=== PATIENT | male | born 1975 | race American Indian/Alaskan Native ===

== ENCOUNTER 2018-08-14 01:34 | Emergency (ER) | payer SELFPAY ==
[2018-08-14] MEDS ORDERED: ASPIRIN PO ONE (03:06)
[2018-08-14] MEDS ORDERED: CATAPRES PO ONE (03:07)
[2018-08-14 04:28] LABS: Basophils # (Auto) 0.1 K/mm3 (0.0-0.1); Basophils % (Auto) 1.2 % (0.0-1.8); Eosinophils # (Auto) 0.1 K/mm3 (0.0-0.4); Hematocrit 46.5 % (35.5-45.6); Hemoglobin 15.6 gm/dl (11.8-15.2); Lymphocytes # (Auto) 2.9 K/mm3 (1.2-5.4); Lymphocytes % (Auto) 29.7 % (13.4-35.0); Mean Corpuscular HGB Conc 33 % (32-34); Mean Corpuscular Hemoglobin 32 pg (28-32); Mean Corpuscular Volume 95 fl (84-94); Monocytes # (Auto) 0.7 K/mm3 (0.0-0.8); Monocytes % (Auto) 7.5 % (0.0-7.3); Platelet Count 223 K/mm3 (140-440); Red Blood Count 4.92 M/mm3 (3.65-5.03)
--- NOTE | 2018-08-14 04:42 | XRay Report ---
FINAL REPORT EXAM: XR CHEST ROUTINE 2V HISTORY: BRUNA and chestpain TECHNIQUE: PA and lateral views of the chest were obtained. There are no previous studies available for comparison. FINDINGS: The heart size is at the upper limits of normal. The thoracic aorta is mildly tortuous. The lungs are clear. There is no evidence of congestion or effusions. The skeletal structures do not show any acute changes. IMPRESSION: No acute cardiopulmonary process.
[2018-08-14 04:43] LABS: BUN/Creatinine Ratio 11; Blood Urea Nitrogen 10 mg/dL (9-20); Calcium 9.1 mg/dL (8.4-10.2); Hemolysis Index 9
[2018-08-14 09:28] VITALS: BP 138/88
[2018-08-14] MEDS ORDERED: TORADOL IM ONE (09:29)
--- NOTE | 2018-08-14 11:10 | Emergency Department Report ---
Blank Doc - Documentation Documentation: Patient is a 42-year-old (gentleman who is complaining of acute onset of left back pain radiating to left chest. Patient states that this is pleuritic hurts only when he takes a deep breath. Patient denies any cough cold congestion, fevers at this time. Patient's troponins are within normal limits as well as his EKG. A d-dimer was sent which is positive the patient will be sent for CTA of the chest. Patient be reassessed.
--- NOTE | 2018-08-14 12:05 | Emergency Department Report ---
ED Chest Pain HPI - General Chief Complaint: Chest Pain Stated Complaint: BACK PAIN Time Seen by Provider: 08/14/18 09:24 Source: patient Mode of arrival: Stretcher Limitations: No Limitations - History of Present Illness Initial Comments: This is a 42-year-old male nontoxic, well nourished in appearance, no acute signs of distress presents to the ED with c/o of left mid-back pain that radiates to left sided chest pain area x1 day. Patient describes pain as aching intermittently and is only when he takes deep breathes. Patient stated that otherwise the patient does not have any chest pain. Patient denies any upper respiratory symptoms. Patient denies any shortness of breath, hemoptysis , fever, chills, nausea, vomiting, headache, stiff neck, numbness, tingling, abdominal pain. Patient denies pleuritic chest pain. Patient denies any recent travels or long car rides. Patient denies any recent surgeries or any sick contacts. Patient denies any drug allergies. PMH includes HTN. Patient has been out of his medication for the past day and a takes losartan 50 mg and Nifedipine 20 mg daily. MD Complaint: chest pain -: days(s) (1) Onset: other (during deep breathing) Pain Location: other (left midback) Pain Radiation: other (left chest) Severity: mild Severity scale (0 -10): 8 Quality: aching Consistency: intermittent Improves With: nothing Worsens With: nothing re: denies: nausea, vomting, diaphoresis, dyspnea, sense of impending doom Other Symptoms: denies: cough, fever, syncope, rash, acid taste in mouth, leg swelling, palpitations, burping Treatments Prior to Arrival: none Aspirin use within the Past 7 Days: (0) No - Related Data On Oral Contraceptives: No Home Medications Medication Instructions Recorded Confirmed Last Taken Losartan/Hydrochlorothiazide 1 tab PO DAILY 08/14/18 08/14/18 Unknown [Losartan-Hctz 50-12.5 mg Tab] NIFEdipine [Nifedipine] 1 tab PO DAILY 08/14/18 08/14/18 Unknown Previous Rx's Medication Instructions Recorded Last Taken Type Cyclobenzaprine [Flexeril] 10 mg PO QHS PRN #10 tablet 08/14/18 Unknown Rx Ibuprofen [Motrin] 600 mg PO Q8H PRN #30 tablet 08/14/18 Unknown Rx Losartan [Cozaar] 50 mg PO QDAY #30 tablet 08/14/18 Unknown Rx NIFEdipine [Nifedipine] 20 mg PO DAILY #30 capsule 08/14/18 Unknown Rx Allergies Allergy/AdvReac Type Severity Reaction Status Date / Time No Known Allergies Allergy Unverified 08/14/18 03:01 Heart Score - HEART Score History: Slightly suspicious EKG: Normal Age: < 45 Risk factors: 1-2 risk factors Troponin: < normal limit HEART Score: 1 ED Review of Systems ROS: Stated complaint: BACK PAIN Other details as noted in HPI Constitutional: denies: chills, fever Eyes: denies: eye pain, eye discharge, vision change ENT: denies: ear pain, throat pain Respiratory: denies: cough, shortness of breath, wheezing Cardiovascular: chest pain. denies: palpitations Endocrine: no symptoms reported Gastrointestinal: denies: abdominal pain, nausea, diarrhea Genitourinary: denies: urgency, dysuria Musculoskeletal: back pain. denies: joint swelling, arthralgia Skin: denies: rash, lesions Neurological: denies: headache, weakness, paresthesias Psychiatric: denies: anxiety, depression Hematological/Lymphatic: denies: easy bleeding, easy bruising ED Past Medical Hx - Past Medical History Hx Hypertension: Yes Additional medical history: Obesity, Sleep Apnea - Surgical History Past Surgical History?: No - Social History Smoking Status: Current Every Day Smoker Substance Use Type: None - Medications Home Medications: Home Medications Medication Instructions Recorded Confirmed Last Taken Type Cyclobenzaprine [Flexeril] 10 mg PO QHS PRN #10 tablet 08/14/18 Unknown Rx Ibuprofen [Motrin] 600 mg PO Q8H PRN #30 tablet 08/14/18 Unknown Rx Losartan [Cozaar] 50 mg PO QDAY #30 tablet 08/14/18 Unknown Rx Losartan/Hydrochlorothiazide 1 tab PO DAILY 08/14/18 08/14/18 Unknown History [Losartan-Hctz 50-12.5 mg Tab] NIFEdipine [Nifedipine] 1 tab PO DAILY 08/14/18 08/14/18 Unknown History NIFEdipine [Nifedipine] 20 mg PO DAILY #30 capsule 08/14/18 Unknown Rx ED Physical Exam - General Limitations: No Limitations General appearance: alert, in no apparent distress - Head Head exam: Present: atraumatic, normocephalic - Eye Eye exam: Present: normal appearance Pupils: Present: normal accommodation - ENT ENT exam: Present: normal exam, mucous membranes moist - Neck Neck exam: Present: normal inspection, full ROM. Absent: tenderness, meningismus, lymphadenopathy - Respiratory Respiratory exam: Present: normal lung sounds bilaterally. Absent: respiratory distress, wheezes, rales, rhonchi, stridor, chest wall tenderness, accessory muscle use, decreased breath sounds, prolonged expiratory - Cardiovascular Cardiovascular Exam: Present: regular rate, normal rhythm, normal heart sounds. Absent: bradycardia, tachycardia, irregular rhythm, systolic murmur, diastolic murmur, rubs, gallop - GI/Abdominal GI/Abdominal exam: Present: soft, normal bowel sounds. Absent: distended, tenderness, guarding, rebound, rigid, diminished bowel sounds - Rectal Rectal exam: Present: deferred - Extremities Exam Extremities exam: Present: normal inspection, full ROM, normal capillary refill - Back Exam Back exam: Present: normal inspection, full ROM, tenderness (left mid-back). Absent: CVA tenderness (R), CVA tenderness (L), muscle spasm, paraspinal tenderness, vertebral tenderness, rash noted - Neurological Exam Neurological exam: Present: alert, oriented X3, normal gait - Psychiatric Psychiatric exam: Present: normal affect, normal mood - Skin Skin exam: Present: warm, dry, intact, normal color. Absent: rash ED Course Vital Signs 08/14/18 08/14/18 08/14/18 02:51 03:24 09:27 Temperature 98.1 F 98.7 F Pulse Rate 79 79 78 Respiratory 20 18 Rate Blood Pressure 182/113 182/113 Blood Pressure 138/88 [Right] O2 Sat by Pulse 96 97 Oximetry - Reevaluation(s) Reevaluation #1: 08/14/18 12:30 Patient is speaking in full sentences with no signs of distress noted. - Consultations Consultation #1: 08/14/18 12:30 Patient has been consulted with Bob Melendez about patient history, physical exam, and labs and examined and screened patient and agrees to ED plan of care. DINESH score - Dinesh Score Age > 65: (0) No Aspirin use within the Past 7 Days: (0) No 3 or more CAD Risk Factors: (0) No 2 or more Angina events in past 24 hrs: (0) No Known CAD with more than 50% Stenosis: (0) No Elevated Cardiac Markers: (0) No ST Deviation Greater than 0.5mm: (0) No DINESH Score: 0 ED Medical Decision Making - Lab Data Result diagrams: 08/14/18 03:55 08/14/18 03:55 - Medical Decision Making This is a 42-year-old male that presents with left muscle back pain and chest pain and HTN. Patient is stable and was examined by me and Bob Melendez. DINESH and HEART score 0 pints. Wells criteria for DVT/SVT/PE 0 points. Negative slight elevated so a CTA obtained and dictated by the radiologist. Patient is notified of the report with no questions noted.. EKG normal sinus rhythm with no significant changes in ST. Chest xray dictated by the radiologist. PAtient is notified of the Xray report with no questions noted. Labs within normal limits. Negative troponin x3. Patient received Toradol IM and Catapres in the ED which she stated his symptoms are improving subsided. I will discharge patient with Flexeril and Motrin. I also refilled patients HTN meds. Patient was instructed to Follow-up with a primary care/headhunter doctor in 3-5 days for possible stress test and echocardiogram or if symptoms worsen and continue return to emergency room as soon as possible. At time of discharge, the patient does not seem toxic or ill in appearance. No acute signs of distress noted. Patient agrees to discharge treatment plan of care. No further questions noted by the patient. Critical care attestation.: If time is entered above; I have spent that time in minutes in the direct care of this critically ill patient, excluding procedure time. ED Disposition Clinical Impression: Chest pain Qualifiers: Chest pain type: unspecified Qualified Code(s): R07.9 - Chest pain, unspecified Muscle strain of left upper back Qualifiers: Encounter type: initial encounter Qualified Code(s): S29.012A - Strain of muscle and tendon of back wall of thorax, initial encounter Disposition: TO HOME OR SELFCARE Is pt being admited?: No Does the pt Need Aspirin: No Condition: Stable Instructions: Cyclobenzaprine (By mouth), Chest Pain (ED) Additional Instructions: Follow-up with a primary care/headhunter doctor in 3-5 days for possible stress test and echocardiogram or if symptoms worsen and continue return to emergency room as soon as possible. Take ibuprofen and Flexeril as prescribed. Do not operate heavy machinery while taking Flexeril due to sedation Prescriptions: Cyclobenzaprine [Flexeril] 10 mg PO QHS PRN #10 tablet PRN Reason: Muscle Spasm Ibuprofen [Motrin] 600 mg PO Q8H PRN #30 tablet PRN Reason: Pain Losartan [Cozaar] 50 mg PO QDAY #30 tablet NIFEdipine [Nifedipine] 20 mg PO DAILY #30 capsule Referrals: PRIMARY CARE, [Primary Care Provider] - 3-5 Days VENTURA HARRISON MD [Staff Physician] - 3-5 Days ARMAND SINGH MD [Staff Physician] - 3-5 Days [facility] [Outside] - 3-5 Days Forms: Work/School Release Form(ED)
--- NOTE | 2018-08-14 13:14 | Cat Scan Report ---
FINAL REPORT EXAM: CT ANGIO CHEST HISTORY: elevated ddimer and pleur CP TECHNIQUE: CT angiography of the chest was performed. IV contrast was administered. Axial images and coronal and sagittal reformatted images were obtained. PRIORS: None. FINDINGS: There is no aortic dissection seen. There is no significant mediastinal or hilar mass seen. There are no pleural effusions seen. There are no filling defects seen within the pulmonary arterial circulation to suggest pulmonary embolism. The lungs are clear. There is no pneumothorax seen. IMPRESSION: There is no pulmonary embolism or aortic dissection seen.
== END 2018-08-14 13:25 | disposition home or self-care (01) ==
LOC: ED 01:34
DX: S29.012A Strain of muscle and tendon of back wall of thorax, initial encounter (principal); F17.200 Nicotine dependence, unspecified, uncomplicated; I10 Essential (primary) hypertension; X58.XXXA Exposure to other specified factors, initial encounter; Y93.89 Activity, other specified; Y99.8 Other external cause status; Y92.89 Other specified places as the place of occurrence of the external cause
CPT/HCPCS: 36415; 71046; 71275; 80048; 84484; 85025; 85379; 93005; 93010; 99285; J1885; Q9967